=== PATIENT | male | born 1985 | race African-American/Black ===

== ENCOUNTER 2020-09-23 21:23 | Emergency (ER) | payer OTHER ==
[~2020-09-23] VITALS: Ht 175.3 cm; Wt 63.5 kg
[2020-09-23 22:39] LABS: URINE BILIRUBIN NEGATIVE (Negative); URINE BLOOD NEGATIVE (Negative); URINE CLARITY CLEAR; URINE COLOR YELLOW; URINE GLUCOSE-RANDOM* TRACE (Negative); URINE KETONES NEGATIVE (Negative); URINE NITRITE-REFLEX NEGATIVE (Negative); URINE PROTEIN (DIPSTICK) NEGATIVE (Negative); URINE UROBILINOGEN 0.2 E.U./dl (0.2-1.0)
[2020-09-23 22:41] LABS: CALCIUM 8.6 mg/dL (8.5-10.1); CREATININE 1.1 mg/dL (0.7-1.3); POTASSIUM 4.1 mmol/L (3.5-5.1)
[2020-09-23 22:46] LABS: URINE LEUKOCYTES-REFLEX 3+ (Negative)
[2020-09-23 23:15] LABS: BACTERIA-REFLEX 1-9 Few /HPF (None Seen); CASTS None Seen /LPF (None Seen); CRYSTALS None Seen /LPF (None Seen); MUCUS 0-3 Light strn/LPF (None Seen); SQUAMOUS 0-3 Few /LPF (0-3); TRANSITIONAL EPITHEL CELL 0-3 Few /LPF (None Seen); URINE RBC 0-2 Rare /HPF (0-2); WBC CLUMPS Moderate (None Seen)
[2020-09-23] MEDS ORDERED: CEPHALEXIN500 MG PO (23:35)
[2020-09-23 23:58] VITALS: BP 125/59
== END 2020-09-23 23:59 | disposition home or self-care (01) ==
LOC: ER 21:23
PROVIDERS: Emergency Medicine; Nurse Practitioner Family
DX: N39.0 Urinary tract infection, site not specified (principal); M79.601 Pain in right arm; M54.5 Low back pain; F12.90 Cannabis use, unspecified, uncomplicated